=== PATIENT | female | born 1970 | race Caucasian/White ===

== ENCOUNTER 2023-11-10 04:16 | Day surgery (SDC) | payer BC, OTHER ==
[2023-11-07 13:56] VITALS: BMI 30.5
[2023-11-10] MEDS ORDERED: LIDOCAINE HCL/PF 2% SDV 5ML VIAL ONE (14:10)
[2023-11-10] MEDS ORDERED: MIDAZOLAM HCL 2 MG/2 ML SINGLE DOSE VIAL ONE (14:10)
[2023-11-10] MEDS ORDERED: PROPOFOL 40 ML ONE (14:10)
[2023-11-10] MEDS: ceFAZolin SODIUM 1 GM VIAL IVPB ONE (14:30)
[2023-11-10] MEDS ORDERED: ONDANSETRON 4 MG/2 ML VIAL ONE (14:32)
[2023-11-10] MEDS ORDERED: DEXAMETHASONE SOD PHOSPHATE 4 MG/1 ML VIAL ONE (14:32)
[2023-11-10] MEDS: SILVER NITRATE 75% APPLIC STCK 1 PKT EACH TP ONE (14:48)
[2023-11-10] MEDS ORDERED: KETOROLAC TROMETHAMINE 30 MG/1 ML VIAL ONE (14:50)
[2023-11-10] MEDS ORDERED: oxyCODONE HCL 5 MG TABLET PO PRN (15:07)
[2023-11-10] MEDS: ONDANSETRON 4 MG/2 ML VIAL IVPUSH PRN (15:11)
[2023-11-10] MEDS ORDERED: LACTATED RINGERS SOLUTION 1,000 ML IV SCH (15:15)
[2023-11-10 17:43] VITALS: RESP 17
[2023-11-10 17:46] VITALS: PULSE 58; TEMP 97.8
[2023-11-10 17:48] VITALS: BP 141/71
== END 2023-11-10 16:15 | disposition home or self-care (01) ==
LOC: JASU-SURG 04:16
PROVIDERS: ATTEND Obstetrics & Gynecology
PROC: 0UDB8ZX Extraction of Endometrium, Via Natural or Artificial Opening Endoscopic, Diagnostic (ICD-10-PCS; principal; 2023-11-10 14:00)
DX: N84.0 Polyp of corpus uteri (principal); N95.0 Postmenopausal bleeding
CPT/HCPCS: 81025; 86850; 86900; 86901; 88305-TC; 88341-TC; 88342-TC; 94760